=== PATIENT | female | born 1970 | race Two or more races ===

== ENCOUNTER 2016-11-11 08:19 | Emergency (ER) | payer MEDICAID ==
[~2016-11-11] VITALS: Ht 154.9 cm; Wt 72.6 kg
[~2016-11-11 08:19] MED LIST: PREN-96 PO
[2016-11-11 08:24] VITALS: BP 142/83
== END 2016-11-11 09:55 | disposition home or self-care (01) ==
LOC: ER 08:21
DX: N39.0 Urinary tract infection, site not specified (principal); S16.1XXA Strain of muscle, fascia and tendon at neck level, initial encounter; Z88.6 Allergy status to analgesic agent; Z88.1 Allergy status to other antibiotic agents; Z88.8 Allergy status to other drugs, medicaments and biological substances; Z79.899 Other long term (current) drug therapy; Z88.0 Allergy status to penicillin; Y93.89 Activity, other specified; Y99.9 Unspecified external cause status; Y92.89 Other specified places as the place of occurrence of the external cause
CPT/HCPCS: 81002

== ENCOUNTER 2016-11-15 15:38 | Emergency (ER) | payer MEDICAID ==
[~2016-11-15] VITALS: Ht 152.4 cm; Wt 66.2 kg
[2016-11-15 16:15] LABS: Basophils # (auto) 0 uL; Basophils % (auto) 0.4 % (0.0-2.0); Eosinophils # (auto) 0.4 uL; Eosinophils % (auto) 3.6 % (0.0-7.0); Hematocrit 41.3 % (36.0-46.0); Hemoglobin 13.3 g/dL (12.2-16.2); Lymphocytes # (auto) 3.6 uL; Lymphocytes % (auto) 35.6 % (10.0-50.0); Mean Corpuscular Hgb Conc. 32.3 g/dL (32.0-36.0); Mean Corpuscular Volume 86.4 fL (80.0-100.0); Mean Platelet Volume 7.5 fL (7.4-10.4); Monocytes # (auto) 0.7 uL; Monocytes % (auto) 7.3 % (0.0-12.0); Neutrophils # (auto) 5.4 uL; Neutrophils % (auto) 53.1 % (37.0-80.0); Platelet Count (auto) 322 10^3/uL (140-450); White Blood Cell 10.2 10^3/uL (4.4-10.8)
[2016-11-15 16:32] LABS: Albumin 3.9 g/dL (3.4-5.0); BUN/Creatinine Ratio 21.2; Calcium 8.3 mg/dL (8.5-10.1); Potassium 3.4 mmol/L (3.5-5.1)
[2016-11-15 16:35] LABS: Bilirubin, Total 0.8 mg/dL (0.2-1.0); Total Protein 7.5 g/dL (6.4-8.2)
[2016-11-15] MEDS ORDERED: SODIUM CHLORIDE 0.9% 1,000 ML IV ONE (17:06)
[2016-11-15] MEDS ORDERED: KETOROLAC TROMETH 30 MG/ML 1ML VIAL IV ONE (17:15)
[2016-11-15] MEDS ORDERED: PROMETHAZINE HCL 25 MG/ML 1ML IV ONE (17:15)
[2016-11-15] MEDS ORDERED: POTASSIUM CHL 10% (20 MEQ/15ML) ORAL SOLN PO ONE (18:00)
[2016-11-15 18:03] LABS: Urine Bilirubin Negative (Negative); Urine Blood 2+ /uL (Negative); Urine Color Yellow (Yellow); Urine Glucose Normal (Normal); Urine Ketone Negative (Negative); Urine Nitrite Negative (Negative); Urine RBC 6 /hpf (0 - 4); Urine Squamous Epithelial Cell FEW /hpf (<5); Urine Urobilinogen Normal (Negative); Urine pH 5.5 (5.0-8.0)
[2016-11-15 18:22] VITALS: BP 110/76
== END 2016-11-15 19:05 | disposition home or self-care (01) ==
LOC: ER 15:40
DX: R51 Headache (principal); R73.9 Hyperglycemia, unspecified; N39.0 Urinary tract infection, site not specified; I10 Essential (primary) hypertension
CPT/HCPCS: 36415; 70450; 71020; 80053; 81001; 83735; 84443; 84484; 85025; 85379; 93005; 96361; 96374; 96375; 99285; J1885; J2550; J7030

== ENCOUNTER 2016-12-11 16:27 | Emergency (ER) | payer MEDICAID ==
[~2016-12-11] VITALS: Ht 152.4 cm; Wt 64.9 kg
[2016-12-11 18:11] LABS: Basophils # (auto) 0.1 uL; Basophils % (auto) 0.5 % (0.0-2.0); Eosinophils # (auto) 0.3 uL; Eosinophils % (auto) 2.8 % (0.0-7.0); Hematocrit 42.2 % (36.0-46.0); Hemoglobin 14.4 g/dL (12.2-16.2); Lymphocytes # (auto) 2.3 uL; Lymphocytes % (auto) 20.4 % (10.0-50.0); Mean Corpuscular Hemoglobin 29.3 pg (28.0-32.0); Mean Corpuscular Hgb Conc. 34.2 g/dL (32.0-36.0); Mean Corpuscular Volume 85.8 fL (80.0-100.0); Mean Platelet Volume 7.7 fL (7.4-10.4); Monocytes # (auto) 0.9 uL; Monocytes % (auto) 7.6 % (0.0-12.0); Neutrophils # (auto) 7.8 uL; Neutrophils % (auto) 68.7 % (37.0-80.0); Platelet Count (auto) 295 10^3/uL (140-450); Red Cell Distribution Width 13.8 % (11.6-16.0); White Blood Cell 11.4 10^3/uL (4.4-10.8)
[2016-12-11 18:27] LABS: Albumin 3.8 g/dL (3.4-5.0); BUN/Creatinine Ratio 16.9; Calcium 8.4 mg/dL (8.5-10.1); Magnesium 2.4 mg/dL (1.6-2.6); Potassium 3.5 mmol/L (3.5-5.1)
[2016-12-11 18:30] LABS: Bilirubin, Total 1.4 mg/dL (0.2-1.0); Total Protein 7.2 g/dL (6.4-8.2)
[2016-12-11] MEDS ORDERED: ONDANSETRON HCL 4 MG/2 ML VIAL IV ONE (19:45)
[2016-12-11] MEDS ORDERED: SODIUM CHLORIDE 0.9% 1,000 ML IV ONE (19:45)
[2016-12-11 21:16] LABS: Urine Bilirubin Negative (Negative); Urine Color Yellow (Yellow); Urine Glucose Normal (Normal); Urine Mucus FEW (None Seen); Urine Nitrite Negative (Negative); Urine RBC 8 /hpf (0 - 4); Urine Squamous Epithelial Cell MOD /hpf (<5); Urine Urobilinogen Normal (Negative); Urine WBC Clumps PRESENT /hpf (None Seen); Urine pH 5.5 (5.0-8.0)
[2016-12-11 21:23] LABS: Urine Blood 2+ /uL (Negative); Urine Ketone 1+ (Negative)
[2016-12-11 21:37] VITALS: BP 107/70
[2016-12-11] MEDS ORDERED: MORPHINE SULFATE 4 MG/ML SYRG IV ONE (22:00)
== END 2016-12-11 22:42 | disposition home or self-care (01) ==
LOC: ER 16:35
DX: F32.9 Major depressive disorder, single episode, unspecified (principal); N39.0 Urinary tract infection, site not specified; I10 Essential (primary) hypertension; Z88.1 Allergy status to other antibiotic agents; Z88.2 Allergy status to sulfonamides; Z88.6 Allergy status to analgesic agent; Z88.0 Allergy status to penicillin
CPT/HCPCS: 36415; 80053; 81001; 81025; 83735; 85025; 96361; 96374; 96375; 99284; J2270; J2405; J7030

== ENCOUNTER 2017-10-27 17:40 | Emergency (ER) | payer MEDICAID ==
[~2017-10-27] VITALS: Ht 152.4 cm; Wt 68.0 kg
[2017-10-27 17:57] VITALS: BP 146/92
[2017-10-27 18:37] LABS: Basophils # (auto) 0.1 uL; Basophils % (auto) 0.5 % (0.0-2.0); Eosinophils # (auto) 0.1 uL; Eosinophils % (auto) 1.2 % (0.0-7.0); Hematocrit 43.4 % (36.0-46.0); Hemoglobin 14.2 g/dL (12.2-16.2); Lymphocytes # (auto) 2.3 uL; Lymphocytes % (auto) 21.1 % (10.0-50.0); Mean Corpuscular Hemoglobin 28.7 pg (28.0-32.0); Mean Corpuscular Hgb Conc. 32.7 g/dL (32.0-36.0); Mean Corpuscular Volume 87.7 fL (80.0-100.0); Monocytes # (auto) 0.8 uL; Monocytes % (auto) 7.2 % (0.0-12.0); Neutrophils # (auto) 7.8 uL; Nucleated Red Blood Cells % 0.2 %; Platelet Count (auto) 347 10^3/uL (140-450); Red Blood Cells 4.94 10^6/uL (4.0-5.20); Red Cell Distribution Width 13.8 % (11.8-14.3); White Blood Cell 11.1 10^3/uL (4.4-10.8)
[2017-10-27 18:54] LABS: BUN/Creatinine Ratio 17.9; Calcium 8.7 mg/dL (8.5-10.1); Potassium 3.5 mmol/L (3.5-5.1)
[2017-10-27 19:04] LABS: Bilirubin, Total 0.5 mg/dL (0.2-1.0); Total Protein 7.8 g/dL (6.4-8.2)
== END 2017-10-28 01:01 | disposition home or self-care (01) ==
LOC: ER 17:45
DX: O20.9 Hemorrhage in early pregnancy, unspecified (principal); O26.891 Other specified pregnancy related conditions, first trimester; D25.9 Leiomyoma of uterus, unspecified; I10 Essential (primary) hypertension; Z88.0 Allergy status to penicillin; Z3A.00 Weeks of gestation of pregnancy not specified; Z88.6 Allergy status to analgesic agent
CPT/HCPCS: 36415; 76801; 76817; 80053; 84702; 85025

== ENCOUNTER 2017-10-30 08:28 | Emergency (ER) | payer MEDICAID ==
[~2017-10-30] VITALS: Ht 152.4 cm; Wt 68.0 kg
[2017-10-30 08:46] VITALS: BP 135/78
== END 2017-10-30 10:04 | disposition home or self-care (01) ==
LOC: ER 08:28
DX: O03.9 Complete or unspecified spontaneous abortion without complication (principal); O16.1 Unspecified maternal hypertension, first trimester; Z3A.01 Less than 8 weeks gestation of pregnancy; Z88.0 Allergy status to penicillin; Z88.2 Allergy status to sulfonamides; Z88.6 Allergy status to analgesic agent
CPT/HCPCS: 36415; 84702

== ENCOUNTER 2018-10-03 12:43 | Emergency (ER) | payer MEDICAID ==
[~2018-10-03] VITALS: Ht 152.4 cm; Wt 65.8 kg
[2018-10-03 12:50] VITALS: BP 157/83
[2018-10-03] MEDS ORDERED: TETRACAINE HCL 0.5% OPTH(EYE) SOLN 4ML RIGHTEYE ONE (13:45)
[2018-10-03] MEDS ORDERED: FLUORESCEIN SOD 1 MG TEST STRIP RIGHTEYE ONE (13:45)
[2018-10-03] MEDS ORDERED: methylPREDNISolone SOD SUCC 125 MG/2 ML VL IM ONE (13:45)
== END 2018-10-03 14:59 | disposition home or self-care (01) ==
LOC: ER 12:43
DX: H00.032 Abscess of right lower eyelid (principal); I10 Essential (primary) hypertension; Z88.2 Allergy status to sulfonamides; Z88.6 Allergy status to analgesic agent
CPT/HCPCS: 96372; 99283; J2930

== ENCOUNTER 2018-10-15 08:51 | Emergency (ER) | payer MEDICAID ==
[~2018-10-15] VITALS: Ht 152.4 cm; Wt 65.8 kg
[2018-10-15 08:56] VITALS: BP 150/87
== END 2018-10-15 10:08 | disposition home or self-care (01) ==
LOC: ER 08:51
DX: H10.31 Unspecified acute conjunctivitis, right eye (principal); I10 Essential (primary) hypertension; Z88.1 Allergy status to other antibiotic agents; Z88.6 Allergy status to analgesic agent; Z88.8 Allergy status to other drugs, medicaments and biological substances

== ENCOUNTER 2018-10-27 16:55 | Emergency (ER) | payer MEDICAID ==
[~2018-10-27] VITALS: Ht 154.9 cm; Wt 65.8 kg
[2018-10-27 18:41] VITALS: BP 146/76
[2018-10-27] MEDS ORDERED: AZITHROMYCIN 250 MG TAB PO ONE (19:00)
[2018-10-27] MEDS ORDERED: methylPREDNISolone SOD SUCC 125 MG/2 ML VL IM ONE (19:00)
[2018-10-27] MEDS ORDERED: cefTRIAXone SOD 1,000 MG VL IM ONE (19:00)
== END 2018-10-27 19:37 | disposition home or self-care (01) ==
LOC: ER 16:59
DX: H10.12 Acute atopic conjunctivitis, left eye (principal); J31.0 Chronic rhinitis; Z88.6 Allergy status to analgesic agent; Z88.1 Allergy status to other antibiotic agents; Z88.2 Allergy status to sulfonamides; Z79.899 Other long term (current) drug therapy
CPT/HCPCS: 96372; 99283; J0696; J2930

== ENCOUNTER 2019-06-01 11:22 | Emergency (ER) | payer MEDICAID ==
[~2019-06-01] VITALS: Ht 152.4 cm; Wt 65.3 kg
[2019-06-01 11:53] VITALS: BP 120/78
[2019-06-01] MEDS ORDERED: cefTRIAXone SOD 1,000 MG VL IM ONE (12:30)
== END 2019-06-01 13:07 | disposition home or self-care (01) ==
LOC: ER 11:28
DX: J03.90 Acute tonsillitis, unspecified (principal); Z88.6 Allergy status to analgesic agent; Z88.1 Allergy status to other antibiotic agents; Z88.2 Allergy status to sulfonamides; Z88.5 Allergy status to narcotic agent
CPT/HCPCS: 93005; 96372; 99283; J0696

== ENCOUNTER 2019-06-10 11:54 | Emergency (ER) | payer MEDICAID ==
[~2019-06-10] VITALS: Ht 154.9 cm; Wt 63.0 kg
[2019-06-10 12:28] VITALS: BP 151/85
== END 2019-06-10 14:59 | disposition home or self-care (01) ==
LOC: ER 11:54
DX: J02.8 Acute pharyngitis due to other specified organisms (principal); R06.4 Hyperventilation; F41.9 Anxiety disorder, unspecified; Z88.6 Allergy status to analgesic agent
CPT/HCPCS: 93005

== ENCOUNTER 2020-03-13 18:33 | Emergency (ER) | payer MEDICAID ==
[~2020-03-13] VITALS: Ht 152.4 cm; Wt 59.0 kg
[2020-03-13 19:03] LABS: Urine Bacteria FEW /hpf (None Seen); Urine Blood 1+ /uL (Negative); Urine Specific Gravity 1.004 (1.001-1.035); Urine WBC 19 /hpf (0 - 5)
[2020-03-13 20:30] VITALS: BP 150/82
== END 2020-03-13 21:17 | disposition home or self-care (01) ==
LOC: ER 18:33
DX: N39.0 Urinary tract infection, site not specified (principal); Z88.5 Allergy status to narcotic agent; Z88.1 Allergy status to other antibiotic agents; Z88.8 Allergy status to other drugs, medicaments and biological substances
CPT/HCPCS: 81001; 81025